=== PATIENT | male | born 1995 | race Caucasian/White ===

== ENCOUNTER 2016-07-05 22:18 | Emergency (ER) | payer OTHER ==
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
[~2016-07-05 22:18] MED LIST: ADDERALL PO; BACTRIM DS TABL1 TA1 PO; IBUPROFEN PO; LORTAB 5/500 TA1 TA1 PO; MEDROL DOSEPAK4 MG DOB; NO MEDICATIONS; OMNICEF PO; PHENERGAN/CODEIN5 ML PO; RONDEC-DM SYRU120 ML PO; TESSALON200 MG PO; VOLTAREN75 MG PO; ZITHROMAX PO; ZYRTEC10 M2 PO
== END 2016-07-05 22:45 | disposition home or self-care (01) ==
LOC: SED 22:18
DX: S13.4XXA Sprain of ligaments of cervical spine, initial encounter (principal); S33.5XXA Sprain of ligaments of lumbar spine, initial encounter; S23.3XXA Sprain of ligaments of thoracic spine, initial encounter; F90.9 Attention-deficit hyperactivity disorder, unspecified type; F17.210 Nicotine dependence, cigarettes, uncomplicated; Z88.1 Allergy status to other antibiotic agents; V43.52XA Car driver injured in collision with other type car in traffic accident, initial encounter
CPT/HCPCS: 72072; 72100; 72125; 99284